=== PATIENT | male | born 1945 | race African-American/Black ===

== ENCOUNTER 2022-06-19 22:25 | Inpatient (IN) | payer MEDICARE, OTHER ==
[~2022-06-19] VITALS: Ht 182.9 cm; Wt 76.4 kg
[2022-06-20 01:08] LABS: Albumin 2.8 g/dL (3.4-5.0); BUN/Creatinine Ratio 17.2; Calcium 8.7 mg/dL (8.5-10.1); Potassium 3.9 mmol/L (3.5-5.1)
[2022-06-20 01:11] LABS: Bilirubin, Total 0.3 mg/dL (0.2-1.0); Total Protein 7.5 g/dL (6.4-8.2)
[2022-06-20 01:15] LABS: Basophils # (auto) 0.2 10 ^3/uL (0-0.2); Eosinophils # (auto) 0.1 10 ^3/uL (0-0.8); Eosinophils % (auto) 1.7 % (0.0-7.0); Hematocrit 31.1 % (41.0-53.0); Hemoglobin 10.2 g/dL (13.5-17.5); Lymphocytes # (auto) 2.2 10 ^3/uL (0.4-5.4); Lymphocytes % (auto) 30.5 % (10.0-50.0); Mean Corpuscular Hemoglobin 25.9 pg (28.0-32.0); Mean Corpuscular Hgb Conc. 32.8 g/dL (32.0-36.0); Mean Corpuscular Volume 78.7 fL (80.0-100.0); Monocytes # (auto) 0.7 10 ^3/uL (0-1.3); Monocytes % (auto) 10.1 % (0.0-12.0); Neutrophils % (auto) 54.7 % (37.0-80.0); Nucleated Red Blood Cells % 0.1 %; Red Blood Cells 3.96 10^6/uL (4.5-5.90); Red Cell Distribution Width 18.1 % (11.8-14.3); White Blood Cell 7.3 10^3/uL (4.4-10.8)
[2022-06-20] MEDS ORDERED: ACETAMINOPHEN 325 MG TAB PO PRN (06:00)
[2022-06-20] MEDS ORDERED: ONDANSETRON HCL 4 MG/2 ML VIAL IV PRN (06:00)
[2022-06-20] MEDS ORDERED: MORPHINE SULFATE INJ 2 MG/ml SYRG IV PRN (06:45)
[2022-06-20] MEDS ORDERED: NITROGLYCERIN 0.4 MG SL TAB SL PRN (06:45)
[2022-06-20 06:47] LABS: Eosinophils # (auto) 0.1 10 ^3/uL (0-0.8); Eosinophils % (auto) 1.8 % (0.0-7.0); Monocytes # (auto) 0.7 10 ^3/uL (0-1.3); Nucleated Red Blood Cells % 0.2 %
[2022-06-20 06:50] LABS: Basophils # (auto) 0 10 ^3/uL (0-0.2); Basophils % (auto) 0.5 % (0.0-2.0); Hemoglobin 10.6 g/dL (13.5-17.5); Lymphocytes # (auto) 2.3 10 ^3/uL (0.4-5.4); Lymphocytes % (auto) 32.2 % (10.0-50.0); Mean Corpuscular Hemoglobin 25.3 pg (28.0-32.0); Monocytes % (auto) 9.5 % (0.0-12.0); Red Blood Cells 4.17 10^6/uL (4.5-5.90); Red Cell Distribution Width 18.1 % (11.8-14.3); White Blood Cell 7.1 10^3/uL (4.4-10.8)
[2022-06-20 07:05] LABS: Albumin 2.9 g/dL (3.4-5.0); Calcium 9.2 mg/dL (8.5-10.1); Potassium 3.8 mmol/L (3.5-5.1)
[2022-06-20 07:10] LABS: BUN/Creatinine Ratio 16.7; Bilirubin, Total 0.5 mg/dL (0.2-1.0); Total Protein 7.8 g/dL (6.4-8.2)
[2022-06-20] MEDS: SOD CHL 0.45% 1,000 ML IV SCH (08:26)
[2022-06-20] MEDS ORDERED: IOHEXOL 300 MG/ML 100ML BOTTLE IJ ONE (09:34)
[2022-06-20] MEDS ORDERED: ENOXAPARIN SOD 40 MG/0.4 ML SYRINGE SC SCH (10:00)
[2022-06-20] MEDS: ALBUMIN 25% 100 ML IV SCH ×2 (10:14→15:00)
[2022-06-20] MEDS: FAMOTIDINE (10MG/ML) 2ML VL IV SCH (10:14)
[2022-06-20] MEDS ORDERED: levoFLOXacin 500MG 100 ML IV ONE (13:30)
[2022-06-20] MEDS ORDERED: ALBUMIN 25% 100 ML IV ONE (15:00)
[2022-06-20] MEDS: TAMSULOSIN HYDROCHLORIDE 0.4 MG CAP PO SCH (18:25)
[2022-06-20] MEDS: HYDROcodone-ACET 5/325MG TAB PO PRN (22:58)
[2022-06-21] MEDS: SOD CHL 0.45% 1,000 ML IV SCH ×2 (02:15→22:00)
[2022-06-21] MEDS: DOCUSATE SOD 100 MG CAP PO PRN (06:20)
[2022-06-21] MEDS ORDERED: LACTULOSE 20Gm/30ML SOLN PO ONE (07:15)
[2022-06-21 08:31] LABS: Albumin 3.5 g/dL (3.4-5.0); Calcium 9.4 mg/dL (8.5-10.1); Potassium 3.6 mmol/L (3.5-5.1)
[2022-06-21 08:34] LABS: BUN/Creatinine Ratio 13.1; Total Protein 7.8 g/dL (6.4-8.2)
[2022-06-21 09:03] LABS: Hemoglobin 10.5 g/dL (13.5-17.5); Lymphocytes # (auto) 1.9 10 ^3/uL (0.4-5.4); Monocytes # (auto) 0.6 10 ^3/uL (0-1.3); Neutrophils # (auto) 2.7 10 ^3/uL (1.6-8.6)
[2022-06-21 09:05] LABS: Basophils # (auto) 0.1 10 ^3/uL (0-0.2); Basophils % (auto) 1.5 % (0.0-2.0); Eosinophils # (auto) 0.2 10 ^3/uL (0-0.8); Eosinophils % (auto) 2.8 % (0.0-7.0); Lymphocytes % (auto) 34.6 % (10.0-50.0); Mean Corpuscular Hemoglobin 25.1 pg (28.0-32.0); Mean Corpuscular Hgb Conc. 31.9 g/dL (32.0-36.0); Mean Corpuscular Volume 78.5 fL (80.0-100.0); Neutrophils % (auto) 50.1 % (37.0-80.0); Nucleated Red Blood Cells % 0.2 %; Red Cell Distribution Width 18.4 % (11.8-14.3); White Blood Cell 5.5 10^3/uL (4.4-10.8)
[2022-06-21] MEDS: levoFLOXacin 500MG 100 ML IV SCH (10:14)
[2022-06-21] MEDS: FAMOTIDINE (10MG/ML) 2ML VL IV SCH (10:14)
[2022-06-21 16:21] VITALS: BP 134/88
[2022-06-21 17:00] VITALS: BP 134/88
[2022-06-21] MEDS: TAMSULOSIN HYDROCHLORIDE 0.4 MG CAP PO SCH (18:12)
[2022-06-21 20:00] VITALS: BP 133/93
[2022-06-21] MEDS: HYDROcodone-ACET 5/325MG TAB PO PRN (20:44)
[2022-06-21 22:00] VITALS: BP 133/93
[2022-06-22 05:00] VITALS: BP 132/88
[2022-06-22 07:51] LABS: INR 1.12 (0.9-1.15); Partial Thromboplastin Time 32.5 sec (24.6-33.4)
[2022-06-22 08:30] VITALS: BP 122/82
[2022-06-22] MEDS: FAMOTIDINE (10MG/ML) 2ML VL IV SCH (09:02)
[2022-06-22] MEDS: levoFLOXacin 500MG 100 ML IV SCH (09:02)
[2022-06-22] MEDS ORDERED: ENOXAPARIN SOD 40 MG/0.4 ML SYRINGE SC SCH (10:00)
[2022-06-22] MEDS ORDERED: MIDAZOLAM HCL 2MG/2ML 2ml VIAL (1mg/ml) ONE (11:40)
[2022-06-22] MEDS ORDERED: SODIUM CHLORIDE LOCK 0 ML ONE (11:40)
[2022-06-22] MEDS ORDERED: ONDANSETRON HCL 4 MG/2 ML VIAL ONE (11:40)
[2022-06-22] MEDS ORDERED: fentaNYL CITRATE 100 MCG/2 ML VL ONE (11:40)
[2022-06-22] MEDS ORDERED: PROPOFOL 10 MG/ML 20 ML IV ONE (11:40)
[2022-06-22] MEDS ORDERED: HYDROmorphone HCL 2 MG/ML VL/or syr IV PRN ×2 (12:30)
[2022-06-22] MEDS ORDERED: METOCLOPRAMIDE HCL 5MG/ml INJ 2ml VIAL IV PRN (12:30)
[2022-06-22 17:00] VITALS: BP 130/79
[2022-06-22] MEDS: HYDROcodone-ACET 5/325MG TAB PO PRN ×2 (17:44→21:33)
[2022-06-22] MEDS: TAMSULOSIN HYDROCHLORIDE 0.4 MG CAP PO SCH (18:01)
[2022-06-22] MEDS: SOD CHL 0.45% 1,000 ML IV SCH (18:01)
[2022-06-22 20:00] VITALS: BP 97/62
[2022-06-22 22:00] VITALS: BP 97/62
[2022-06-23 05:00] VITALS: BP 138/94
[2022-06-23] MEDS: HYDROcodone-ACET 5/325MG TAB PO PRN ×3 (07:04→12:13)
[2022-06-23 08:48] VITALS: BP 148/90
[2022-06-23] MEDS: FAMOTIDINE (10MG/ML) 2ML VL IV SCH (09:54)
[2022-06-23] MEDS: levoFLOXacin 500MG 100 ML IV SCH (09:54)
[2022-06-23 12:45] VITALS: BP 117/77
[2022-06-23 16:50] VITALS: BP 109/71
[2022-06-23] MEDS ORDERED: MAGNESIUM CITRATE SOLUTION 300 ML BTL PO ONE (17:00)
[2022-06-23] MEDS: TAMSULOSIN HYDROCHLORIDE 0.4 MG CAP PO SCH (18:10)
[2022-06-23] MEDS: OXYCODONE W/ ACETAMINOPHEN 5/325MG TABLET PO PRN (19:50)
[2022-06-23 22:00] VITALS: BP 110/75
[2022-06-23] MEDS: MELATONIN 5 MG TAB PO PRN (23:48)
[2022-06-24 05:25] VITALS: BP 97/65
[2022-06-24 05:35] LABS: Basophils # (auto) 0.1 10 ^3/uL (0-0.2); Basophils % (auto) 1.4 % (0.0-2.0); Eosinophils # (auto) 0.1 10 ^3/uL (0-0.8); Hemoglobin 10.8 g/dL (13.5-17.5); Lymphocytes # (auto) 1.9 10 ^3/uL (0.4-5.4); Nucleated Red Blood Cells % 0.1 %
[2022-06-24 05:37] LABS: Eosinophils % (auto) 2.3 % (0.0-7.0); Hematocrit 33.4 % (41.0-53.0); Mean Corpuscular Hemoglobin 25.4 pg (28.0-32.0); Mean Corpuscular Hgb Conc. 32.2 g/dL (32.0-36.0); Monocytes # (auto) 0.5 10 ^3/uL (0-1.3); Monocytes % (auto) 9.8 % (0.0-12.0); Neutrophils # (auto) 2.8 10 ^3/uL (1.6-8.6); Neutrophils % (auto) 51.5 % (37.0-80.0); Red Blood Cells 4.23 10^6/uL (4.5-5.90); Red Cell Distribution Width 18.4 % (11.8-14.3); White Blood Cell 5.5 10^3/uL (4.4-10.8)
[2022-06-24 05:58] LABS: BUN/Creatinine Ratio 13.5; Calcium 9.2 mg/dL (8.5-10.1); Magnesium 2.1 mg/dL (1.6-2.6); Potassium 3.6 mmol/L (3.5-5.1)
[2022-06-24 09:00] VITALS: BP 124/76
[2022-06-24] MEDS: FAMOTIDINE (10MG/ML) 2ML VL IV SCH (10:05)
[2022-06-24] MEDS: levoFLOXacin 500MG 100 ML IV SCH (10:06)
[2022-06-24 13:00] VITALS: BP 107/73
[2022-06-24] MEDS ORDERED: MORPHINE SULFATE INJ 2 MG/ml SYRG IV PRN (13:00)
[2022-06-24] MEDS ORDERED: MIDAZOLAM HCL 2MG/2ML 2ml VIAL (1mg/ml) ONE (15:16)
[2022-06-24] MEDS ORDERED: fentaNYL CITRATE 100 MCG/2 ML VL ONE (15:16)
[2022-06-24] MEDS ORDERED: KETAMINE HCL 10 ML ONE (15:16)
[2022-06-24] MEDS ORDERED: BUPIVACAINE/DEXTROSE MPF 0.75% 2 ML AMP IT ONE (15:19)
[2022-06-24] MEDS ORDERED: ePHEDrine SULFATE 50 MG/ML AMP ONE (15:19)
[2022-06-24] MEDS ORDERED: PHENYLEPHRINE HCL 10 MG/ML VL ONE (15:19)
[2022-06-24] MEDS ORDERED: GLYCOPYRROLATE 0.2 MG/ML 1ML VIAL ONE (15:19)
[2022-06-24] MEDS ORDERED: ONDANSETRON HCL 4 MG/2 ML VIAL ONE (15:19)
[2022-06-24] MEDS ORDERED: HYDROmorphone HCL 2 MG/ML VL/or syr IV PRN (16:45)
[2022-06-24] MEDS ORDERED: ONDANSETRON HCL 4 MG/2 ML VIAL IV PRN (16:45)
[2022-06-24] MEDS: TAMSULOSIN HYDROCHLORIDE 0.4 MG CAP PO SCH (18:21)
[2022-06-24] MEDS: OXYCODONE W/ ACETAMINOPHEN 5/325MG TABLET PO PRN (21:29)
[2022-06-24 21:56] VITALS: BP 97/61
[2022-06-24] MEDS ORDERED: MELATONIN 5 MG TAB PO SCH (22:00)
[2022-06-24] MEDS: MELATONIN 5 MG TAB PO PRN (22:45)
[2022-06-25] MEDS: DOCUSATE SOD 100 MG CAP PO PRN ×2 (02:15→09:00)
[2022-06-25 05:00] VITALS: BP 91/57
[2022-06-25 09:00] VITALS: BP 102/62
[2022-06-25] MEDS: FAMOTIDINE (10MG/ML) 2ML VL IV SCH (09:00)
[2022-06-25] MEDS: levoFLOXacin 500MG 100 ML IV SCH (09:00)
[2022-06-25] MEDS: OXYCODONE W/ ACETAMINOPHEN 5/325MG TABLET PO PRN (10:25)
[2022-06-25 13:00] VITALS: BP 91/58
[2022-06-25] MEDS: LACTULOSE 20Gm/30ML SOLN PO SCH ×2 (15:07→21:22)
[2022-06-25 17:00] VITALS: BP 117/71
[2022-06-25] MEDS: TAMSULOSIN HYDROCHLORIDE 0.4 MG CAP PO SCH (17:32)
[2022-06-25 22:00] VITALS: BP 101/65
[2022-06-25] MEDS ORDERED: FLEET ENEMA(ADULT) 135 ML PR ONE (23:15)
[2022-06-26] MEDS: OXYCODONE W/ ACETAMINOPHEN 5/325MG TABLET PO PRN ×3 (00:41→22:46)
[2022-06-26 05:00] VITALS: BP 107/59
[2022-06-26] MEDS: LACTULOSE 20Gm/30ML SOLN PO SCH ×3 (05:32→22:00)
[2022-06-26 08:00] VITALS: BP 113/80
[2022-06-26] MEDS: FAMOTIDINE (10MG/ML) 2ML VL IV SCH (10:59)
[2022-06-26] MEDS: levoFLOXacin 500MG 100 ML IV SCH (11:00)
[2022-06-26 12:01] VITALS: BP 112/79
[2022-06-26 17:00] VITALS: BP 114/76
[2022-06-26] MEDS: TAMSULOSIN HYDROCHLORIDE 0.4 MG CAP PO SCH (18:25)
[2022-06-26 20:00] VITALS: BP 99/69
[2022-06-26 22:00] VITALS: BP 99/69
[2022-06-26] MEDS: MELATONIN 5 MG TAB PO PRN (23:50)
[2022-06-27 05:00] VITALS: BP 97/68
[2022-06-27] MEDS: LACTULOSE 20Gm/30ML SOLN PO SCH ×3 (06:00→22:29)
[2022-06-27 09:00] VITALS: BP 107/75
[2022-06-27] MEDS: OXYCODONE W/ ACETAMINOPHEN 5/325MG TABLET PO PRN ×2 (09:29→16:02)
[2022-06-27] MEDS: FAMOTIDINE (10MG/ML) 2ML VL IV SCH (10:34)
[2022-06-27] MEDS: levoFLOXacin 500MG 100 ML IV SCH (10:34)
[2022-06-27 13:00] VITALS: BP 114/74
[2022-06-27 16:46] VITALS: BP 113/74
[2022-06-27] MEDS: TAMSULOSIN HYDROCHLORIDE 0.4 MG CAP PO SCH (18:24)
[2022-06-27] MEDS ORDERED: FLEET ENEMA(ADULT) 135 ML PR ONE (18:45)
[2022-06-27 20:00] VITALS: BP 111/68
[2022-06-28 05:00] VITALS: BP 97/64
[2022-06-28] MEDS: LACTULOSE 20Gm/30ML SOLN PO SCH ×3 (06:30→21:42)
[2022-06-28 09:00] VITALS: BP 108/71
[2022-06-28] MEDS: FAMOTIDINE (10MG/ML) 2ML VL IV SCH (10:22)
[2022-06-28] MEDS: levoFLOXacin 500MG 100 ML IV SCH (10:22)
[2022-06-28] MEDS: OXYCODONE W/ ACETAMINOPHEN 5/325MG TABLET PO PRN ×2 (10:23→21:45)
[2022-06-28 12:49] VITALS: BP 103/71
[2022-06-28 16:46] VITALS: BP 105/70
[2022-06-28] MEDS: TAMSULOSIN HYDROCHLORIDE 0.4 MG CAP PO SCH (17:40)
[2022-06-28 20:00] VITALS: BP 120/78
[2022-06-28 22:00] VITALS: BP 120/78
[2022-06-29] VITALS (8 sets, daily range): BP systolic 100–120; BP diastolic 58–78
[2022-06-29] MEDS: MELATONIN 5 MG TAB PO PRN (00:59)
[2022-06-29 04:44] LABS: Basophils # (auto) 0.1 10 ^3/uL (0-0.2); Eosinophils # (auto) 0.2 10 ^3/uL (0-0.8); Eosinophils % (auto) 2.7 % (0.0-7.0); Hemoglobin 10.9 g/dL (13.5-17.5); Monocytes # (auto) 0.6 10 ^3/uL (0-1.3); Neutrophils # (auto) 2.8 10 ^3/uL (1.6-8.6); Nucleated Red Blood Cells % 0.1 %; White Blood Cell 6.2 10^3/uL (4.4-10.8)
[2022-06-29 04:47] LABS: Hematocrit 33.4 % (41.0-53.0); Lymphocytes # (auto) 2.5 10 ^3/uL (0.4-5.4); Lymphocytes % (auto) 40.3 % (10.0-50.0); Mean Corpuscular Hemoglobin 25.7 pg (28.0-32.0); Mean Corpuscular Hgb Conc. 32.6 g/dL (32.0-36.0); Monocytes % (auto) 10.2 % (0.0-12.0); Neutrophils % (auto) 45.8 % (37.0-80.0); Red Blood Cells 4.23 10^6/uL (4.5-5.90); Red Cell Distribution Width 18.6 % (11.8-14.3)
[2022-06-29 05:00] LABS: Albumin 3.2 g/dL (3.4-5.0); BUN/Creatinine Ratio 13.5; Calcium 9.2 mg/dL (8.5-10.1); Magnesium 2.1 mg/dL (1.6-2.6); Potassium 4.1 mmol/L (3.5-5.1)
[2022-06-29 05:03] LABS: Bilirubin, Total 0.3 mg/dL (0.2-1.0); Phosphorus 3.5 mg/dL (2.5-4.90); Total Protein 7.1 g/dL (6.4-8.2)
[2022-06-29] MEDS: LACTULOSE 20Gm/30ML SOLN PO SCH ×3 (05:34→21:03)
[2022-06-29] MEDS: levoFLOXacin 500MG 100 ML IV SCH (09:44)
[2022-06-29] MEDS: FAMOTIDINE (10MG/ML) 2ML VL IV SCH (09:45)
[2022-06-29] MEDS: DOCUSATE SOD 100 MG CAP PO PRN (11:49)
[2022-06-29] MEDS: OXYCODONE W/ ACETAMINOPHEN 5/325MG TABLET PO PRN ×2 (11:49→20:27)
[2022-06-29] MEDS ORDERED: DOCU100C10 PO (13:45)
[2022-06-29] MEDS ORDERED: PERCOT PO (13:45)
[2022-06-29] MEDS ORDERED: TAM04C PO (13:45)
[2022-06-29] MEDS ORDERED: LEVO500T31 PO (13:45)
[2022-06-29] MEDS: TAMSULOSIN HYDROCHLORIDE 0.4 MG CAP PO SCH (18:19)
[2022-06-30] MEDS: MELATONIN 5 MG TAB PO PRN ×2 (01:10→21:11)
[2022-06-30 05:00] VITALS: BP 109/70
[2022-06-30] MEDS: LACTULOSE 20Gm/30ML SOLN PO SCH (05:54)
[2022-06-30 08:00] VITALS: BP 115/68
[2022-06-30 09:00] VITALS: BP 115/68
[2022-06-30] MEDS: FAMOTIDINE (10MG/ML) 2ML VL IV SCH (10:19)
[2022-06-30] MEDS: levoFLOXacin 500MG 100 ML IV SCH (10:20)
[2022-06-30] MEDS: OXYCODONE W/ ACETAMINOPHEN 5/325MG TABLET PO PRN ×2 (12:39→21:11)
[2022-06-30 13:00] VITALS: BP 132/88
[2022-06-30 17:00] VITALS: BP 94/65
[2022-06-30] MEDS: TAMSULOSIN HYDROCHLORIDE 0.4 MG CAP PO SCH (18:33)
[2022-06-30 22:00] VITALS: BP 96/62
[2022-07-01] VITALS (7 sets, daily range): BP systolic 86–109; BP diastolic 58–71
[2022-07-01] MEDS: levoFLOXacin 500MG 100 ML IV SCH (09:47)
[2022-07-01] MEDS: OXYCODONE W/ ACETAMINOPHEN 5/325MG TABLET PO PRN ×2 (12:48→20:22)
[2022-07-01] MEDS: TAMSULOSIN HYDROCHLORIDE 0.4 MG CAP PO SCH (20:06)
[2022-07-01] MEDS: MELATONIN 5 MG TAB PO PRN (21:18)
[2022-07-02 05:00] VITALS: BP 96/66
[2022-07-02 08:25] VITALS: BP 119/70
[2022-07-02] MEDS: levoFLOXacin 500MG 100 ML IV SCH (09:58)
[2022-07-02 12:15] VITALS: BP 89/58
[2022-07-02 16:05] VITALS: BP 96/62
[2022-07-02] MEDS: TAMSULOSIN HYDROCHLORIDE 0.4 MG CAP PO SCH (17:31)
[2022-07-02] MEDS: OXYCODONE W/ ACETAMINOPHEN 5/325MG TABLET PO PRN (17:31)
[2022-07-02] MEDS: DOCUSATE SOD 100 MG CAP PO PRN (17:31)
== END 2022-07-02 20:05 | DRG 671 ==
LOC: ER 22:25 → EDBD 22:25 → OVERFLOW 06-20 06:34 → WEST WING 06-21 16:09
PROVIDERS: ADMIT Nurse Practitioner Family; ATTEND Internal Medicine
PROC: 0TQD8ZZ Repair Urethra, Via Natural or Artificial Opening Endoscopic (ICD-10-PCS; 2022-06-24)
PROC: 0TJB8ZZ Inspection of Bladder, Via Natural or Artificial Opening Endoscopic (ICD-10-PCS; principal; 2022-06-24 15:19)
DX: N35.919 Unspecified urethral stricture, male, unspecified site (principal); L89.154 Pressure ulcer of sacral region, stage 4; L89.224 Pressure ulcer of left hip, stage 4; E44.0 Moderate protein-calorie malnutrition; G82.20 Paraplegia, unspecified; N39.46 Mixed incontinence; D64.9 Anemia, unspecified; F03.90 Unspecified dementia, unspecified severity, without behavioral disturbance, psychotic disturbance, mood disturbance, and anxiety; K59.00 Constipation, unspecified; Z20.822 Contact with and (suspected) exposure to COVID-19; Z88.0 Allergy status to penicillin; Z74.01 Bed confinement status; Z88.8 Allergy status to other drugs, medicaments and biological substances; Z85.46 Personal history of malignant neoplasm of prostate; Z68.21 Body mass index [BMI] 21.0-21.9, adult
CPT/HCPCS: 36415; 71045; 72170; 74178; 76775; 80048; 80053; 82962; 83735; 84100; 84154; 85025; 85610; 85730; 86850; 86900; 86901; 87081; 87426; 93005; 96365; 96367; 96372; 97163; G0378; J1956; J2250; J2405; J2704; J3490; P9047